=== PATIENT | male | born 1945 | race Caucasian/White ===

== ENCOUNTER 2018-08-18 07:04 | Inpatient (IN) | payer MEDICARE | END 2018-08-20 16:44 | LOC: DAHIP 07:04 → 4AH 14:58 | PROC: 0RRJ00Z Replacement of Right Shoulder Joint with Reverse Ball and Socket Synthetic Substitute, Open Approach (ICD-10-PCS; principal; 2018-08-18 08:48) | DX: M75.121 Complete rotator cuff tear or rupture of right shoulder, not specified as traumatic (principal); M19.011 Primary osteoarthritis, right shoulder; M12.9 Arthropathy, unspecified ==

== ENCOUNTER → 2019-08-11 | Outpatient (CLI) | payer MEDICARE ==
[~2019-08-11] MED LIST: ASPI-1181 PO; ATOR10TA69 PO; CHOL100040 PO; DUTA0.5C17 PO; ESOM40CA54 PO; FLUO40CA7 PO; LOSA50TA64 PO; MELA1TAB21 PO; METF-444 PO; MULT-1296 PO; TAMS0.4C32 PO; VITAMIN E PO; XIDRA OU
== END | disposition home or self-care (01) ==
LOC: RAH 12:27
PROVIDERS: ATTEND Internal Medicine Critical Care Medicine
DX: N28.1 Cyst of kidney, acquired (principal); N28.9 Disorder of kidney and ureter, unspecified
CPT/HCPCS: 76770